=== PATIENT | female | born 1985 | race African-American/Black ===

== ENCOUNTER 2020-08-01 07:03 | Emergency (ER) | payer OTHER, BC, SELFPAY ==
--- NOTE | ~2020-08-01 | US_ITS ---
EXAMINATION: US OB <=14 wk fetus w TV DATE: 08/01/2020 07:54 INDICATION: Vaginal bleeding TECHNIQUE: Real-time pelvic ultrasound utilizing both a transvaginal and transabdominal probe was pe rformed. The interpreting radiologist was not present for the study. COMPARISON: None. FINDINGS: The uterus measures 9.3 x 3.8 x 4.6 cm. The endometrial complex measures approximately 12 mm in thic kness at the fundus. No evident intrauterine gestational sac.Trace amount oflikely physiologic free f luid at the cul-de-sac. The right ovary measures 3.3 x 2.5 x 2.1 cm. The left ovary measures 3.1 x 2. 8 x 2.6 cm. Vascular flow identified at both ovaries on color Doppler IMPRESSION: 1. No evident intrauterine gestational sac. Differential would include early, failed or ectopic pregn glory. Correlate with serial beta hCGs and repeat ultrasound as clinically indicated. Reviewed, dictated and finalized at location B. ON MARKER MACHINE IMPRESSION: 1. No evident intrauterine gestational sac. Differential would include early, f pete or ectopic . Correlate with serial beta hCGs and repeat ultrasou nd as clinically indicated.
[2020-08-01 07:06] VITALS: BP 161/111; PULSE 76; RESP 18; TEMP 37.1; O2SAT 100
--- NOTE | 2020-08-01 07:11 | ED.FEMALEGU ---
HPI - Female Genitourinary General Chief complaint: Vaginal Bleeding Stated complaint: Vaginal Bleeding Time Seen by Provider: 08/01/20 07:09 Source: patient and EMS Mode of arrival: EMS Limitations: no limitations History of Present Illness HPI Narrative: A 35-year-old female presents to the emergency department today with complaints of vaginal pain and bleeding. Patient is estimating that she is approximately 8 weeks . She notes having taken 3 tests at home. Patient stated that starting last night she was feeling a great deal of pressure in her pelvis. She put a pad on just in case. Patient notes that as she was walking back to her home she felt a big gush of blood. Patient notes that there was copious amounts of blood. She denies any any clots or tissue at this time. Review of Systems Review of Systems: Narrative: CONSTITUTIONAL: Denies fever, chills, or sweats. EYES: Denies visual changes, redness, or discharge. ENT: Denies rhinorrhea, congestion, sore throat, or otalgia. CARDIOVASCULAR: Denies chest pain, palpitations, or edema. RESPIRATORY: Denies cough or dyspnea. GASTROINTESTINAL: Denies abdominal pain, nausea, vomiting, or diarrhea. GENITOURINARY: Endorses pelvic pain and vaginal bleeding. SKIN: Denies rash or itching. MUSCULOSKELETAL: Denies back pain, joint pain, or myalgia. NEUROLOGIC: Denies headache, numbness, dizziness, or weakness. PSYCHIATRIC: Denies anxiety or depression. Exam Narrative: Exam Narrative: GENERAL: Well-appearing, well-nourished, and in no acute distress. HEAD: Normocephalic, atraumatic. EYES: PERRLA and EOMI. ENT: Nares clear, no rhinorrhea or epistaxis. Mucous membranes moist. Oropharynx without tonsillar hypertrophy exudate or other lesions. Bilateral TMs pearly snow nonbulging NECK: Supple. No adenopathy or masses. No carotid bruits or JVD CHEST: Clear to auscultation. No respiratory distress. No wheezes rales or rhonchi HEART: Regular rate and rhythm. No murmur heard. Normal peripheral pulses. ABDOMEN: Soft, nontender, nondistended, normal active bowel sounds. EXTREMITIES: Normal range of motion. No edema. SKIN: Warm, dry, no rash. NEURO: No focal deficits. Alert and oriented x3. PSYCH: Normal mood and affect. Course Reevaluation(s) Reevaluation #1: Patient sitting in the room, she notes that the pain medicines feel like they are starting to kick in. Discussed the results with the patient informed her that unfortunately she has not , patient seems relieved. Instructed her to follow-up with her filing clerk patient verbalizes her understanding. Time: 08:33 Vital Signs Vital signs: Vital Signs Temperature 37.1 C 08/01/20 07:06 Pulse Rate 76 08/01/20 07:06 Respiratory Rate 18 08/01/20 07:06 Blood Pressure 161/111 H 08/01/20 07:06 Pulse Oximetry 100 08/01/20 07:06 Temperature 37.1 C 08/01/20 07:06 Pulse Rate 76 08/01/20 07:06 Respiratory Rate 18 08/01/20 07:06 Blood Pressure 161/111 H 08/01/20 07:06 Pulse Oximetry 100 08/01/20 07:06 MDM - Female Genitourinary MDM Narrative Medical decision making narrative: In brief this is a 35-year-old female who presented to the emergency department with complaints of a possible miscarriage. Patient estimated she was approximately 8 weeks along. She noted she had 3+ home test. Blood work ensued today and showed that her hCG levels were negligible. Ultrasound correlated this with no evidence of intrauterine gestation. Patient likely has completed her miscarriage. Patient recommend to follow-up with her filing clerk. Medical Records Attestation: I reviewed the patient's medical records. Lab Data Attestation: I reviewed the patient's lab results. Result diagrams: 08/01/20 07:09 08/01/20 07:09 Labs: Lab Results 08/01/20 08/01/20 Range/Units 07:09 07:09 WBC 6.0 (4.5-10.0) K/mm3 RBC 4.40 (4.2-5.4) M/mm3 Hgb 13.3 (12.0-15.0) g/dL
[2020-08-01 07:21] LABS: Basophils Absolute Auto 0.1 K/mm3 (0.0-0.1); Basophils Percent Auto 1.3 % (0.2-1.2); Eosinophils Absolute Auto 0.2 K/mm3 (0-0.3); Eosinophils Percent Auto 3.5 % (0-4.4); Hematocrit 40.8 % (37.0-47.0); Hemoglobin 13.3 g/dL (12.0-15.0); Immature Granulocyte Absolute 0.01 K/mm3 (0.00-0.031); Immature Granulocyte Percent A 0.2 % (0-0.5); Lymphocytes Absolute Auto 2.68 K/mm3 (0.9-3.2); Lymphocytes Percent Auto 44.5 % (18.3-44.2); Mean Corpuscular HGB Conc 32.6 g/dl (32-36); Mean Corpuscular Hemoglobin 30.2 pg (26-34); Mean Corpuscular Volume 92.7 fl (80-100); Mean Platelet Volume 9.1 fl (7.4-10.4); Monocytes Absolute Auto 0.7 K/mm3 (0.1-0.6); Monocytes Percent Auto 12.3 % (2.6-8.5); Neutrophils Absolute Auto 2.3 K/mm3 (1.3-6.7); Neutrophils Percent Auto 38.2 % (45.5-73.1); Platelet Count Result 285 k/mm3 (150-375); Red Cell Distribution Width 13.4 % (11.5-14.5)
[2020-08-01 07:29] LABS: Alanine Aminotransferase 20 U/L (4-35); Albumin Level 3.4 g/dL (3.5-5.1); Alkaline Phosphatase 64 U/L (38-126); Anion Gap 5 mmol/L (8-16); Aspartate Amino Transferase 24 U/L (14-36); Bilirubin,Total 0.3 mg/dL (0.2-1.3); Blood Urea Nitrogen 5 mg/dL (7-17); Carbon Dioxide 25 mmol/L (22-30); Chloride 106 mmol/L (98-107); Estimated CRCL calculation 116 ml/min; Estimated Glomerular Filt Rate > 60; Glucose 89 mg/dL (65-105); Potassium 3.7 mmol/L (3.4-5.0); Sodium 136 mmol/L (137-145)
[2020-08-01 07:45] LABS: Beta HCG Quantitative < 2.39 mIU/ML
[2020-08-01] MEDS: HYDROcodone/acetaminophen (*CRX) 5-325 MG TABLET 1 TAB PO (07:56)
--- NOTE | 2020-08-01 08:19 | PC.NURSE ---
Pt states she is unable to give urine sample at this time. Pt states she went before [facility] sound.
== END 2020-08-01 09:07 | disposition home or self-care (01) ==
PROVIDERS: Emergency Provider Emergency Medicine
DX: O03.9 Complete or unspecified spontaneous abortion without complication (principal)
CPT/HCPCS: 36415; 76801; 76817; 80053; 84702; 85025; 85461; 99284; A9270